=== PATIENT | female | born 1940 | race Caucasian/White ===

== ENCOUNTER → 2017-12-30 | Outpatient (CLI) | payer OTHER ==
[~2017-12-30] MED LIST: ACETAMINOPHEN325 M1 PO; ASPIRIN EC81 M1 PO; B12INJ; CALCIUM; CINNAMON ALPHA1 EACH PO; CIPROFLOXACIN250 M2 PO; COQ-10100 MG PO; FISH OIL 1,2001 EAC3 PO; FLAGYL500 MG PO; FOSAMAX 70 MG T70 M1 PO; GARLIC OIL1 EACH PO; GLUCOSAMINE &1 EAC1 PO; MAG-OX 400 TAB400 M1 PO; MOBIC15 MG PO; MULTIVITAMINS PO; NORVASC10 MG PO; OMEPRAZOLE 20 M20 M1 PO; SIMVASTATIN20 MG PO; VITAMIN D-32000 UNIT PO
== END ==
LOC: M.RAD 09:28
DX: Z12.31 Encounter for screening mammogram for malignant neoplasm of breast (principal); M19.90 Unspecified osteoarthritis, unspecified site

== ENCOUNTER → 2019-03-08 | Outpatient (CLI) | payer OTHER | LOC: M.RAD 08:50 | DX: Z12.31 Encounter for screening mammogram for malignant neoplasm of breast (principal) ==

== ENCOUNTER → 2020-03-09 | Outpatient (CLI) | payer OTHER | LOC: M.RAD 09:12 | PROVIDERS: ATTEND Family Medicine | DX: Z12.31 Encounter for screening mammogram for malignant neoplasm of breast (principal) ==

== ENCOUNTER → 2021-03-16 | Outpatient (CLI) | payer OTHER | LOC: M.RAD 09:58 | PROVIDERS: ATTEND Family Medicine | DX: Z12.31 Encounter for screening mammogram for malignant neoplasm of breast (principal) ==